=== PATIENT | female | born 2000 | race African-American/Black ===

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

== ENCOUNTER → 2020-07-08 | Outpatient (CLI) | payer OTHER | LOC: M LABSMTC 14:34 | PROVIDERS: ATTEND Pediatrics | DX: Z20.822 Contact with and (suspected) exposure to COVID-19 (principal) ==

== ENCOUNTER → 2020-07-08 | Outpatient (CLI) | payer OTHER | LOC: M LABSMTC 13:58 | PROVIDERS: ATTEND Pediatrics | DX: Z20.822 Contact with and (suspected) exposure to COVID-19 (principal) ==